=== PATIENT | male | born 1990 | race African-American/Black ===

== ENCOUNTER 2017-10-27 11:40 | Inpatient (IN) | payer MEDICAID ==
[~2017-10-27] VITALS: Ht 175.3 cm; Wt 62.8 kg
[2017-10-27] MEDS ORDERED: SODIUM CHLORIDE 0.9% 1,000 ML IV ONE (12:13)
[2017-10-27 12:37] LABS: HEMATOCRIT. 45.6 % (42.0-52.0); HEMOGLOBIN. 14.6 g/dL (14.0-18.0); MEAN CORPUSCULAR HEMOGLOBIN 31.8 pg (28.0-32.0); MEAN CORPUSCULAR VOLUME 99.3 fL (80.0-94.0); MEAN PLATELET VOLUME 8.6 fl (7.4-10.4); PLATELET 243 x1000/uL (130-400); RED BLOOD CELL COUNT 4.59 mill/uL (4.7-6.1); RED CELL DISTRIBUTION WIDTH 14.6 % (11.6-14.6)
[2017-10-27 12:39] LABS: CHLORIDE 107 mEq/L (98-107)
[2017-10-27 12:47] LABS: CARBON DIOXIDE 22 mEq/L (21-32); CREATINE KINASE 446 IU/L (39-308)
[2017-10-27 12:57] LABS: PLATELET ESTIMATE NORMAL
[2017-10-27 13:01] LABS: ETHANOL BLOOD < 10 mg/dL
[2017-10-27] MEDS ORDERED: LEVOFLOXACIN 750MG PREMIX 150 ML IV ONE (13:15)
[2017-10-27] MEDS ORDERED: FUROSEMIDE 40MG/4ML VIAL IVP ONE (13:30)
[2017-10-27 13:38] LABS: BG BASE EXCESS -3.3 mmol/L (-2.0-2.0); BG CARBOXYHEMOGLOBIN 1.8 % (0.5-1.5); BG DEOXYHEMOGLOBIN 2.2 % (0.0-5.0); BG FRACTION INSPIRED OXYGEN 60; BG HCO3 ACT 23.4 mmol/L (22.0-26.0); BG METHEMOGLOBIN 0.1 % (0.0-1.5); BG OXYGEN SATURATION 97.8 % (92.0-98.5); BG OXYHEMOGLOBIN 95.9 % (94.0-97.0); BG PCO2 48.6 mmHg (35.0-45.0); BG PH 7.301 (7.350-7.450); BG PO2 109.7 mmHg (75.0-100.0); BG SAMPLE SITE RIGHT RADIAL; BG TOTAL HEMOGLOBIN 14.7 g/dL (12.0-18.0); BG VENT MODE MASK - SIMPLE
[2017-10-27] MEDS ORDERED: IOHEXOL-350 100 ML BOTTLE ONE (15:18)
[2017-10-27 16:08] LABS: CLARITY URINE CLEAR (CLEAR); COLOR URINE YELLOW (YELLOW); GLUCOSE URINE NEGATIVE (NEGATIVE); KETONES URINE NEGATIVE (NEGATIVE); LEUKOCYTE ESTERASE URINE NEGATIVE (NEGATIVE); NITRITE URINE NEGATIVE (NEGATIVE); OCCULT BLOOD URINE TRACE (NEGATIVE); PROTEIN URINE 1+ (NEGATIVE); SPECIFIC GRAVITY URINE 1.014 (1.005-1.030); UROBILINOGEN URINE 0.2 E.U./dL (0.2-1.0)
[2017-10-27] MEDS ORDERED: ONDANSETRON HCL 4MG/2ML VIAL IV ONE (16:30)
[2017-10-27 16:37] LABS: *AMPHETAMINES SCREEN URINE NEGATIVE (NEGATIVE); *BARBITURATES SCREEN URINE NEGATIVE (NEGATIVE); *BENZODIAZEPINES SCREEN URINE NEGATIVE (NEGATIVE); *COCAINE SCREEN URINE PRESUMTIVE POSITIVE (NEGATIVE); CANNABINOID URINE SCREEN PRESUMTIVE POSITIVE (NEGATIVE); METHADONE URINE SCREEN NEGATIVE (NEGATIVE); OPIATES URINE SCREEN PRESUMTIVE POSITIVE (NEGATIVE); PHENCYCLIDINE URINE SCREEN NEGATIVE (NEGATIVE)
[2017-10-27 21:21] VITALS: BP 143/84
[2017-10-27 21:22] VITALS: BP 143/84
[2017-10-27] MEDS ORDERED: GUAIFENESIN 200MG/10ML SUGAR FREE UDC PO PRN (22:00)
[2017-10-27] MEDS ORDERED: ONDANSETRON HCL 4MG/2ML VIAL IV PRN (22:00)
[2017-10-27] MEDS ORDERED: DIPHENHYDRAMINE 50MG/ML VIAL IV PRN (22:00)
[2017-10-27] MEDS ORDERED: LORAZEPAM 0.5MG TABLET PO PRN (22:00)
[2017-10-27] MEDS ORDERED: IPRATROPIUM/ALBUTEROL 0.5-3(2.5)MG/3ML NEB INH PRN (22:00)
[2017-10-27] MEDS ORDERED: MAGNESIUM/ALUMINUM HYDROXIDE/SIMETHICONE 30ML UDC PO PRN (22:00)
[2017-10-27] MEDS ORDERED: ACETAMINOPHEN 325MG TABLET PO PRN (22:00)
[2017-10-27] MEDS ORDERED: MVI, ADULT NO.1 10 ML, THIAMINE HCL 100 MG, FOLIC ACID 1 MG in SODIUM CHLORIDE 0.9% 1,0... IV SCH ×4 (23:00)
[2017-10-27] MEDS ORDERED: MVI, ADULT NO.1 10 ML, THIAMINE HCL 100 MG in SODIUM CHLORIDE 0.9% 1,000 ML IV SCH ×3 (23:00)
[2017-10-27] MEDS: OMEPRAZOLE 20MG CAPSULE EXTENDED RELEASE PO SCH (23:08)
[2017-10-27] MEDS: DEXT 5%/0.45% NACL KCL 10MEQ/L 1,000 ML IV SCH (23:09)
[2017-10-28] VITALS: BP 127/66
[2017-10-28 04:00] VITALS: BP 106/58
[2017-10-28 06:27] LABS: CARBON DIOXIDE 29 mEq/L (21-32); CHLORIDE 103 mEq/L (98-107)
[2017-10-28 06:44] LABS: HEMATOCRIT. 41.6 % (42.0-52.0); HEMOGLOBIN. 13.5 g/dL (14.0-18.0); MEAN CORPUSCULAR HEMOGLOBIN 31.5 pg (28.0-32.0); MEAN CORPUSCULAR VOLUME 96.9 fL (80.0-94.0); PLATELET 235 x1000/uL (130-400); RED BLOOD CELL COUNT 4.29 mill/uL (4.7-6.1)
[2017-10-28 08:00] VITALS: BP 123/78
[2017-10-28] MEDS: OMEPRAZOLE 20MG CAPSULE EXTENDED RELEASE PO SCH ×2 (10:46→20:59)
[2017-10-28 12:00] VITALS: BP 99/76
[2017-10-28 12:39] LABS: PLATELET ESTIMATE NORMAL
[2017-10-28] MEDS ORDERED: CEFTRIAXONE 1 G PREMIX 50 ML IV SCH (15:45)
[2017-10-28 16:00] VITALS: BP 117/88
[2017-10-28] MEDS: AZITHROMYCIN 500 MG TABLET PO SCH (16:59)
[2017-10-28] MEDS: DEXT 5%/0.45% NACL KCL 10MEQ/L 1,000 ML IV SCH ×2 (16:59→18:56)
[2017-10-28] MEDS ORDERED: VANCOMYCIN 1500MG in DEXTROSE 5% WATER 250ML IV NR (17:00)
[2017-10-28] MEDS ORDERED: MAGNESIUM 2 G PREMIX 50 ML IV NR (17:00)
[2017-10-28] MEDS ORDERED: PIPERACILLIN/TAZ 3.375G PREMIX 50 ML IV SCH (18:00)
[2017-10-28] MEDS: CEFTRIAXONE 1 G PREMIX 50 ML IV SCH (18:56)
[2017-10-28 20:00] VITALS: BP 109/73
[2017-10-28] MEDS ORDERED: DOXYCYCLINE HYCLATE 100MG CAPSULE PO SCH (21:00)
[2017-10-29] VITALS: BP 123/73
[2017-10-29 04:00] VITALS: BP 124/76
[2017-10-29] MEDS: DEXT 5%/0.45% NACL KCL 10MEQ/L 1,000 ML IV SCH ×2 (04:57→18:53)
[2017-10-29] MEDS ORDERED: VANCOMYCIN 1250MG in DEXTROSE 5% WATER 250ML IV SCH (05:00)
[2017-10-29] MEDS: AZITHROMYCIN 500 MG TABLET PO SCH (09:07)
[2017-10-29] MEDS: OMEPRAZOLE 20MG CAPSULE EXTENDED RELEASE PO SCH ×2 (09:07→20:23)
[2017-10-29 11:23] LABS: HEPATITIS B SURFACE ANTIGEN NEGATIVE
[2017-10-29] MEDS: CEFTRIAXONE 1 G PREMIX 50 ML IV SCH (18:53)
[2017-10-29 20:00] VITALS: BP 117/77
[2017-10-30] VITALS: BP 122/74
[2017-10-30 04:00] VITALS: BP 110/61
[2017-10-30] MEDS: DEXT 5%/0.45% NACL KCL 10MEQ/L 1,000 ML IV SCH (04:29)
[2017-10-30 06:37] LABS: BASOPHILS % 0.5 % (0.0-2.0); EOSINOPHILS % 1.1 % (0.0-5.0); HEMATOCRIT. 40.5 % (42.0-52.0); HEMOGLOBIN. 13.3 g/dL (14.0-18.0); LYMPHOCYTES % 10.6 % (20.0-50.0); MEAN CORPUSCULAR HEMOGLOBIN 31.7 pg (28.0-32.0); MEAN CORPUSCULAR VOLUME 96.3 fL (80.0-94.0); MEAN PLATELET VOLUME 8.7 fl (7.4-10.4); NEUTROPHILS % 82.8 % (40.0-76.0); PLATELET 227 x1000/uL (130-400); RED CELL DISTRIBUTION WIDTH 13.6 % (11.6-14.6)
[2017-10-30 06:43] LABS: CARBON DIOXIDE 27 mEq/L (21-32); CHLORIDE 106 mEq/L (98-107)
[2017-10-30 08:00] VITALS: BP 124/68
[2017-10-30] MEDS: OMEPRAZOLE 20MG CAPSULE EXTENDED RELEASE PO SCH (09:25)
[2017-10-30] MEDS: AZITHROMYCIN 500 MG TABLET PO SCH (09:25)
[2017-10-30 12:00] VITALS: BP 114/62
[2017-10-30 13:36] VITALS: BP 125/72
[2017-10-31 14:22] LABS: QFT MITOGEN VALUE 3.04 IU/mL (.); QFT TB AG VALUE 0.03 IU/mL (.); QFT TB GOLD Negative (Negative)
[2017-10-31 19:12] LABS: MYCOPLASMA PNEUMONIAE IGG 410 U/mL (0-99); MYCOPLASMA PNEUMONIAE IGM < 770 U/mL (0-769)
== END 2017-10-30 13:55 | disposition home or self-care (01) | DRG 720 ==
LOC: ER 12:12 → 7WST 13:37 → EDBEDREQSVC 13:54 → EDBEDREQ 13:54 → ENRESERV 16:23 → CANRESERV 16:23 → EDBEDREQSVC 17:34 → EDBEDREQ 17:45 → ENRESERV 18:24 → EDBEDREQ 20:11
PROVIDERS: ADMIT Internal Medicine; ATTEND Internal Medicine
DX: A41.9 Sepsis, unspecified organism (principal); J96.01 Acute respiratory failure with hypoxia; J69.0 Pneumonitis due to inhalation of food and vomit; G93.41 Metabolic encephalopathy; N17.9 Acute kidney failure, unspecified; F12.10 Cannabis abuse, uncomplicated; E16.2 Hypoglycemia, unspecified; T50.905A Adverse effect of unspecified drugs, medicaments and biological substances, initial encounter; F14.10 Cocaine abuse, uncomplicated; Z87.891 Personal history of nicotine dependence; Y92.89 Other specified places as the place of occurrence of the external cause
CPT/HCPCS: 36415; 36600; 70450; 71010; 71275; 74177; 80048; 80053; 80305; 80307; 80329; 81001; 82375; 82550; 82805; 82962; 83605; 83735; 85025; 85379; 85651; 86140; 86480; 86635; 86698; 86738; 86803; 87040; 87116; 87186; 87340; 87899; 93005; 96374; 96375; 99285; G0482; J0696; J1940; J1956; J2405; J2543; J3370; J3411; J3475; J3490; J7030; J7060; Q9967

== ENCOUNTER 2025-11-28 13:07 | Emergency (ER) | payer MEDICAID, OTHER ==
[~2025-11-28] VITALS: Ht 172.7 cm; Wt 88.0 kg
[2025-11-28 13:27] VITALS: TEMP 36.6; O2SAT 99
[2025-11-28] MEDS: TETANUS, DIPHTHERIA, PERTUSSIS VAC/PF 0.5ML (>10YR OLD) IM ONE (16:14)
[2025-11-28 16:17] VITALS: BP 118/76; PULSE 64; RESP 18; O2SAT 99
== END 2025-11-28 16:55 | disposition home or self-care (01) ==
LOC: ER 13:07
DX: S61.519A Laceration without foreign body of unspecified wrist, initial encounter (principal); W26.0XXA Contact with knife, initial encounter; Y93.89 Activity, other specified; Y92.89 Other specified places as the place of occurrence of the external cause; Y99.8 Other external cause status
CPT/HCPCS: 90471; 90715; 99283